=== PATIENT | female | born 1950 | race Caucasian/White ===

== ENCOUNTER 2024-05-27 11:47 | Emergency (ER) | payer MEDICARE, SELFPAY ==
[2024-05-27 11:47] VITALS: BMI 28.3
[2024-05-27 11:49] VITALS: BP 129/72
[2024-05-27 13:17] VITALS: BP 125/73
[2024-05-27] MEDS: TYLENOL 650 MG PO (13:25)
--- NOTE | 2024-05-27 13:56 | ED.GENMED ---
History of Present Illness
General
Chief Complaint: Head Injury
Source: patient
Exam Limitations: none
Time Seen by Provider: 05/27/24 12:59
Nursing documentation reviewed up to this point in time: agreed with
History of Present Illness
History of Present Illness:
Patient is a 73-year-old female with no significant past medical history presenting for evaluation following unwitnessed mechanical fall yesterday. Patient states that approximately 24 hours ago she was walking in her bathroom when she slipped and
fell falling forward striking her face on the tiles. She does deny any loss of consciousness. Patient states that she felt okay yesterday evening although she did have a large hematoma on her frontal scalp. She applied ice yesterday and it seems
much improved today.
Although this morning when she woke up she states that she just did not feel right. She has a mild headache, nausea. She also feels that she is having some generalized weakness and fatigue. Patient denies any episodes of vomiting, neck pain, back
pain, dizziness. Patient denies any visual changes or obvious bleeding. Patient given the emergency department for further evaluation given her new onset symptoms today and bruising that developed on her face.
Patient does not take a blood thinner
Past History
Past History
ED Past Medical History: None
ED Past Surgical History: None
Social History
Tobacco: Non-smoker
Personal:
Living: with family
Employment: Employed
Review of Systems
Review of Systems
Allergies reviewed?: Yes
All Other Systems: ROS reviewed and negative except as documented in HPI and ROS
Phy Exam
Physical Exam
Physical Exam:
Vitals: Patient's vital signs are stable. Afebrile
General: Patient is well appearing, no acute distress
Skin: Warm and dry, no rashes or lesions. Ecchymoses noted to bilateral nasal sidewall just medial to the medial canthus. Mild bruising to nasal bridge.
Head: Normocephalic. 2 cm hematoma to frontal scalp.
Eyes: Sclera nonicteric. EOMs intact. No nystagmus. Pupils equal round reactive light bilaterally. No proptosis bilaterally.
Nose: Mild tenderness to nasal bridge with no obvious deformity. No septal hematoma.
Throat: Protecting airway. No blood in posterior pharynx
Neck: Normal ROM, no cervical spine tenderness, no meningismus. No midline spinal tenderness
Cardiac: Regular rate and rhythm, no murmurs.
Pulm: Normal respiratory effort, no wheezes, rales, rhonchi heard on exam.
Abdomen: Abdomen soft. No abdominal tenderness. No abdominal bruising
Extremities: Mild superficial abrasion of right knee although full range of motion with no tenderness. No tenderness of bilateral hips with external/internal rotation. Great distal pulses bilateral lower extremities. Bilateral upper extremities
atraumatic and nontender with full range of motion. No evidence of cyanosis or edema
Neuro: AAOx3. CN II-XII intact. No focal neurologic deficits.
Psychiatric: Normal affect.
Course
Orders/Labs/Results
Orders:
Orders
05/27/24 12:36
CT Head W/o Iv Contrast Urgent
Comment:
Reason For Exam: facial trauma
Facial Bones wo Contrast CT [CT Facial Bones W/o Iv Contras] Urgent
Comment:
Reason For Exam: facial trauma, carine orbital ecchymosis
05/27/24 13:22
Acetaminophen [Tylenol] 650 mg PO NOW STA
Vital Signs
Initial and Last Documented VS:
Initial Vital Signs
Temp Pulse Resp BP Pulse Ox
98.3 F 77 16 129/72 95
05/27/24 11:49 05/27/24 11:49 05/27/24 11:49 05/27/24 11:49 05/27/24 11:49
Last Documented Vital Signs
Temp Pulse Resp BP Pulse Ox
98.3 F 75 16 125/73 95
05/27/24 11:49 05/27/24 13:17 05/27/24 13:17 05/27/24 13:17 05/27/24 11:49
MDM/Problems Addressed
Differential Diagnosis Includes:
Not limited to: Facial contusion, concussion, facial bone fracture, nasal fracture, intracranial hemorrhage
MDM/Problems Addressed:
73-year-old female presents for evaluation of minor facial trauma sustained during unwitnessed mechanical fall yesterday. Patient not on any blood thinners. Patient does report minor headache, minor nausea, mild generalized weakness. Vital signs
are stable. Physical exam as above. Patient well-appearing in no apparent distress. Moving all extremities. No neurologic deficits noted on exam. Mild ecchymoses of bilateral nasal sidewalls just medial to medial canthus with some bruising
overlying nasal bridges. No evidence of septal hematoma. Mild tenderness of bilateral infraorbital region with no evidence of ocular globe trauma. Both head CT and facial bone CT were obtained in triage. Will give Tylenol. CT result pending
CT reports reviewed. Head CT without any acute abnormalities. Facial bone CT did show a acute fracture of nasal bone with 1 mm depression of the left side. There is no evidence of septal hematoma. Discussed results with patient. Recommended
pain management and ENT follow-up. Patient stable for discharge. Return precautions discussed at length.
Chronic conditions affecting care:
N/A
Acute Exacerbation and/or Progression of Chronic Illness:
N/A
*Radiology
Radiology exam reviewed: preliminary read by ED provider and radiology read reviewed
*Pulse Oximetry
Patient hypoxic: no
*EKG
Interpreted by ED Provider?: NA
*Record Press Operator Interpretation
Rate: Record Press Operator- N/A
*Critical Care Note
Total Time (30-74mins, 75-104mins- exclusive of procedures): Not Applicable
ED Attending Note
-
Portions of this chart may have been created with voice recognition software.� Occasional wrong word or��sound alike� substitutions may have occurred due to the inherent limitations of voice recognition software.
Discharge Plan
Departure
Patient Disposition: Home (Routine Discharge)
Date of Disposition: 05/27/24
Time of Disposition: 14:28
Patient with high blood pressure during this ER visit?: No
Condition: Good
Covid-19: Not Applicable
Discharge Problem:
Fracture of nasal bone, Minor head injury, Fall
Instructions: Concussion, Adult (DC), Head Injury in Adults (DC), Nose Fracture ED
Prescriptions:
No Action
No Current Medications
hydrocodone-acetaminophen 5 MG/500 MG tablet
1 tab PO .Q4-6HPRN PRN (Reason: PAIN) Qty: 20 0RF
doxycycline hyclate 100 MG tablet
100 mg PO BID Qty: 28 0RF
Referrals:
Ray Borjas MD [Family Provider] - Follow up in 1 week
Kevin Delcid MD [Active] - Call in 1-3 days for appt
Activity Restrictions/Additional Instructions:
RETURN TO THE EMERGENCY DEPARTMENT WITH ANY SEVERE HEADACHE/NECK PAIN, INTRACTABLE NAUSEA/VOMITING, PERSISTENT DIZZINESS, ALTERED MENTAL STATUS, VISUAL CHANGES, DIFFICULTY BREATHING, NOSE BLEED THAT YOU CANNOT GET TO STOP AT HOME, WORSENING IN
CURRENT SYMPTOMS, OR ANY OTHER CONCERNS
-As discussed�your CT scan showed a small nasal fracture. You should take Tylenol as needed for discomfort. Follow-up with ENT for further evaluation/management
-Is possibly sustained a mild concussion during her fall yesterday. You should take Motrin/Tylenol as needed for any discomfort. Stay well-hydrated. Get plenty of rest. Avoid any strenuous activities or screen time until symptoms are improved.
Follow-up with primary care in a week to ensure that symptoms are improving.
-Is important to monitor your symptoms closely and return to the emergency department for any acute worsening or new symptoms.
Interventions
Interventions:
*Risk Screen - Suicide Last Done: 05/27/24 12:02
*General Assessment Last Done: 05/27/24 11:49
*Neglect/Abuse Screening Last Done: 05/27/24 12:02
ED- Fall Risk Assessment Last Done: 05/27/24 12:04
*ED COVID-19 Vaccine History Last Done: 05/27/24 11:49
*Nursing Disposition Last Done: 05/27/24 14:44
ED- Neurological Assessment Last Done: 05/27/24 12:02
ED-Skin Assessment Last Done: 05/27/24 12:02
Discharge Date and Time
Discharge Date/Time: 05/27/24 14:44
Print Language: [employer] [place] [employer]
== END 2024-05-27 14:44 | disposition home or self-care (01) ==
LOC: EMR 11:47
PROVIDERS: EMERGENCY PHYSICIAN Emergency Medicine; FAMILY PHYSICIAN Internal Medicine Geriatric Medicine
DX: S02.2XXA Fracture of nasal bones, initial encounter for closed fracture (principal); S00.83XA Contusion of other part of head, initial encounter; S80.211A Abrasion, right knee, initial encounter; R51.9 Headache, unspecified; R11.0 Nausea; R53.1 Weakness; R53.83 Other fatigue; W01.0XXA Fall on same level from slipping, tripping and stumbling without subsequent striking against object, initial encounter; Y93.01 Activity, walking, marching and hiking; Y92.002 Bathroom of unspecified non-institutional (private) residence as the place of occurrence of the external cause; E78.5 Hyperlipidemia, unspecified
CPT/HCPCS: 99284; 70450; 70486

== ENCOUNTER → 2025-05-03 09:43 | Outpatient (REF) | payer MEDICARE, SELFPAY | LOC: MRI 09:43 | PROVIDERS: ATTENDING PHYSICIAN Family Medicine; FAMILY PHYSICIAN Internal Medicine Geriatric Medicine | DX: Z87.820 Personal history of traumatic brain injury (principal); G44.52 New daily persistent headache (NDPH); H93.12 Tinnitus, left ear; R41.9 Unspecified symptoms and signs involving cognitive functions and awareness | CPT/HCPCS: 70553; A9575 ==

== ENCOUNTER → 2025-10-11 12:13 | Outpatient (REF) | payer MEDICARE, SELFPAY | LOC: HWRAD 12:13 | PROVIDERS: ATTENDING PHYSICIAN Obstetrics & Gynecology Gynecology; FAMILY PHYSICIAN Nurse Practitioner Primary Care | DX: R35.0 Frequency of micturition (principal); N39.0 Urinary tract infection, site not specified; Z80.51 Family history of malignant neoplasm of kidney; Z12.31 Encounter for screening mammogram for malignant neoplasm of breast | CPT/HCPCS: 76770; 77063; 77067 ==